=== PATIENT | female | born 2000 | race Two or more races ===

== ENCOUNTER 2025-01-31 00:53 | Outpatient (CLI) | payer OTHER ==
[2025-01-30 23:45] VITALS: BP 112/68
[~2025-01-31] VITALS: Ht 160 cm; Wt 72.1 kg
[2025-01-31] MEDS ORDERED: RINGERS SOLUTION,LACTATED 1,000 ML IV SCH (01:00)
[2025-01-31] MEDS ORDERED: IRON236 MG PO (01:00)
[2025-01-31] MEDS ORDERED: PRENATAL TABLE1 EAC4 PO (01:00)
[2025-01-31 01:22] LABS: PH,URINE 5.5 (5.0-8.0); URINE APPEARANCE Clear; URINE BILIRRUBIN Negative (NEGATIVE); URINE BLOOD Negative; URINE COLOR Yellow; URINE GLUCOSE Negative (NEGATIVE); URINE KETONE Negative (NEGATIVE); URINE LEUKOCYTE Trace; URINE NITRATE Negative; URINE PROTEIN Negative (NEGATIVE)
[2025-01-31 01:24] VITALS: BP 112/68
[2025-01-31 01:24] LABS: HEMATOCRIT 28.1 % (36.0-45.00); HEMOGLOBIN 9.1 g/dL (12.0-15.00); MEAN CELL VOLUME 83.2 fL (80.00-100.00); MEAN CORPUSCULAR HGB CONC 32.5 g/dl (32.0-36.0); PLATELET COUNT 215 K/uL (150-450); RED BLOOD COUNT 3.38 M/uL (4.00-6.00); RED CELL DISTRIBUTION WIDTH 14.8 % (11.5-14.5)
[2025-01-31 01:26] LABS: URINE BACTERIA 1015.8 uL (0.0-1933); URINE EPITHELIAL CELLS 52.5 uL (0.0-38.8); URINE WBC 12.6 uL (0.0-23.2)
[2025-01-31 01:32] LABS: URINE CAST 0.29 uL (0.0-1.40); URINE RBC 1.7 uL (0.0-20.8)
[2025-01-31 01:40] LABS: INR < 0.93; PARTIAL THROMBOPLASTIN TIME 28.8 SECONDS (22.0-34.0); PROTHROMBIN TIME 10.1 SECONDS (9.0-11.5)
== END 2025-01-31 01:24 | disposition left against medical advice (07) ==
LOC: OBS/DEL 00:53
PROVIDERS: Obstetrics & Gynecology; ATTEND Obstetrics & Gynecology
DX: O26.893 Other specified pregnancy related conditions, third trimester (principal); Z3A.36 36 weeks gestation of pregnancy

== ENCOUNTER 2025-02-14 12:07 | Outpatient (CLI) | payer OTHER ==
[2025-02-14 11:27] VITALS: BP 110/68
[~2025-02-14 12:07] MED LIST: IRON236 MG PO; PRENATAL TABLE1 EAC4 PO
[2025-02-14] MEDS ORDERED: RINGERS SOLUTION,LACTATED 1,000 ML IV SCH (12:30)
[2025-02-14] MEDS ORDERED: CEFAZOLIN SODIUM 1,000 MG VIAL ONE (12:39)
[2025-02-14] MEDS ORDERED: CEFAZOLIN SODIUM 1,000 MG VIAL IV SCH (13:15)
[2025-02-14 15:13] VITALS: BP 105/65
[2025-02-14 19:16] VITALS: BP 99/65
[2025-02-14 23:15] VITALS: BP 100/62; O2SAT 100
[2025-02-15 04:37] VITALS: BP 109/58
[2025-02-15 06:07] VITALS: BP 110/66; O2SAT 99
[2025-02-15 11:35] VITALS: BP 96/55; O2SAT 98
[2025-02-15 14:14] VITALS: BP 96/55
== END 2025-02-15 14:17 | disposition home or self-care (01) ==
LOC: OBS/DEL 12:07
PROVIDERS: ATTEND Obstetrics & Gynecology
DX: O26.893 Other specified pregnancy related conditions, third trimester (principal); R10.2 Pelvic and perineal pain; Z3A.38 38 weeks gestation of pregnancy